=== PATIENT | male | born 1970 | race Caucasian/White ===

== ENCOUNTER 2021-05-05 16:45 | Emergency (ER) | payer MEDICARE ==
[~2021-05-05] VITALS: Ht 162.6 cm; Wt 56.7 kg
[~2021-05-05 16:45] MED LIST: CYCL10 PO; GABA800; IBUP600 PO; LEVE500 PO; PRAZ2 PO
[2021-05-05] MEDS ORDERED: Percocet 5-3251 EACH PO (20:45)
== END 2021-05-05 21:02 | disposition home or self-care (01) ==
LOC: ER 16:45
DX: S40.011A Contusion of right shoulder, initial encounter (principal); S40.012A Contusion of left shoulder, initial encounter; Z91.040 Latex allergy status; Z79.899 Other long term (current) drug therapy; W10.2XXA Fall (on)(from) incline, initial encounter
CPT/HCPCS: 36415; 96374; 96375; 99282-25; A9270; J1170; J1885